=== PATIENT | female | born 1995 | race Caucasian/White ===

== ENCOUNTER 2016-09-19 08:29 | Inpatient (IN) ==
[2016-09-19] MEDS ORDERED: Metoclopramide 10 MG/2 ML VIAL IVP PRN (08:50)
[2016-09-19] MEDS ORDERED: Naloxone 0.4 MG/ML INJ IVP PRN (08:50)
[2016-09-19] MEDS ORDERED: Ondansetron 4 MG/2 ML VIAL IVP PRN (08:50)
[2016-09-19] MEDS ORDERED: Famotidine 20 MG/2 ML VIAL IVP PRN (08:50)
[2016-09-19] MEDS ORDERED: Ringers Solution, Lactated 1,000 ML IVC SCH (09:00)
[2016-09-19] MEDS ORDERED: Oxytocin 20 units/ LR 1000 mL 20 UNIT/1,000 ML BAG IVC SCH ×2 (09:00→22:15)
[2016-09-19 09:26] LABS: Basophils % 0.2 %; Eosinophils # 0.1 K/mcL (0.0-0.6); Eosinophils % 0.7 %; Hematocrit 37.4 % (35.3-44.9); Hemoglobin 12.4 g/dL (11.5-15.4); Immature Granulocytes % 0.5 % (0-4); Lymphocytes # 1.7 K/mcL (0.6-4.6); Lymphocytes % 17.7 %; Mean Corpuscular HGB Conc 33.2 g/dL (31.6-35.5); Mean Corpuscular Hemoglobin 28.4 pg (28.0-33.3); Mean Corpuscular Volume 85.6 fL (83.0-100.0); Mean Platelet Volume 10.7 fL (9.4-12.4); Monocytes # 0.8 K/mcL (0.0-1.3); Monocytes % 8.2 %; Platelet Count 164 K/mcL (140-400); Red Blood Count 4.37 M/mcL (3.82-4.97); Red Cell Distribution Width 13.6 % (11.5-14.5); Segmented Neutrophils % 72.7 %
[2016-09-19] MEDS ORDERED: *HR* Nalbuphine 20 MG/ML AMPUL IVP PRN (09:39)
--- NOTE | 2016-09-19 09:47 | OB/GYN History & Physical ---
Date of Encounter: 09/19/16 Time of Encounter: 09:42 Assessment and Plan (1) 40 weeks gestation of Current visit: Yes Status: Acute Admit to labor and delivery for labor Routine labor management GBS negative Patient may have epidural and/or IV pain medication upon request Vaginal delivery anticipated POC per consult with Dr Velarde. (2) Uterine contractions Current visit: Yes Status: Acute History of Present Illness Chief complaint: Contractions HPI: Ms. Payan is a 21 year old female at 40 weeks and 4 days gestation that was seen in the office this morning with complaints of contractions every 6 minutes for 3 days. She states positive movement and denies LOF, vaginal bleeding, headache, vision changes, and epigastric pain. She had an insignificant course with adequate care. Her GBS status is negative, her blood type is A positive, she immune to varicella, rubella, and is Hep B negative. She is to be admitted for active labor. Past Med Surg Social Fam HX - Past Medical History Medical history: no medical history Psychiatric history: anxiety, depression, panic disorder, PTSD - Past Surgical History Surgical History: no surgical history - Social History Smoking Status: Former smoker Smokeless Tobacco Status: No Alcohol use: none Drug use: none Obstetrical History - Pregnancies : 3 Para: 0 Term: 0 : 0 Ab's: 2 Livin Medications and Allergies Meloxicam [Mobic] 7.5 mg PO DAILY #14 tablet 12/09/15 [Rx] Allergies acetaminophen [From Tylenol] Allergy (Verified 04/27/16 14:40) Vomiting Review of System OB All systems PM: reviewed and no additional remarkable complaints except as stated Exam - Vital Signs Vital signs: Initial Vital Signs Temp Pulse Resp BP Pulse Ox 97.6 F 72 20 133/87 99 09/19/16 09:31 09/19/16 09:31 09/19/16 09:31 09/19/16 09:31 09/19/16 09:31 - Constitutional Constitutional: well developed, well nourished, no acute distress, average body habitus - HEENT HEENT: Normocephaly, Mucus Membranes Moist - Neck Neck exam: full ROM, normal inspection - Lungs Respiratory exam: CTAB - Cardiovascular Cardiovascular exam: RRR, +S1, +S2 - Abdomen Abdomen: Present: bowel sounds normal, gravid, non tender - Extremities Extremities exam: normal capillary refill, normal inspection, radial pulses palpable and symetrical Deep Tendon Reflex Grade: 1+ Diminished - Cervix Dilation: 3 (per office exam) Effacement: 80 (per office exam) Station: -1 - Uterus Uterus exam: Absent: tender - Comments Comments: FHTs 135 with moderate variability and 15x15 accels Category I tracing TOCO: Contractions every 2-4 minutes 60-90 seconds in length, palpate moderate Results Result Diagrams: 09/19/16 09:10 All other labs normal. - VTE Reasons for not Prescribing Prophylaxis: Treatment not Indicated - Low risk for VTE
[2016-09-19] MEDS ORDERED: Bupivacaine-MPF 0.25% 10 ML VIAL EP ONE (10:27)
[2016-09-19] MEDS ORDERED: *HR* FentaNYL (PF) 100 MCG/2 ML VIAL EP ONE (10:27)
[2016-09-19] MEDS ORDERED: Epidural Premix (fent/bupiv) 110 ML EP SCH (10:30)
[2016-09-19] MEDS ORDERED: *HR* FentaNYL (PF) 100 MCG/2 ML VIAL ONE (10:30)
[2016-09-19] MEDS ORDERED: Bupivacaine-MPF 0.25% 10 ML VIAL ONE ×2 (10:31→19:44)
[2016-09-19] MEDS ORDERED: Epidural Premix (fent/bupiv) 110 ML EP ONE ×2 (10:33→17:40)
--- NOTE | 2016-09-19 11:24 | Anesthesia Evaluation PreOp ---
Date of Encounter: 09/19/16 Time of Encounter: 10:20 - Past History Planned Operation: epidural Cardiac History: Denies any Significant Hx Pulmonary History: Former smoker (quit at start of preg, 6 mos smoking history) PRECISION AGRONOMIST History: Denies Any Significant HX Other Medical History: GERD Anesthesia History: No Prior Anesthetic Complications (had foot surgery as an , no family history of anesthesia problems) : Yes Test: Positive Alcohol Use: none Drug use: none Medications and Allergies Meloxicam [Mobic] 7.5 mg PO DAILY #14 tablet 12/09/15 [Rx] Allergies acetaminophen [From Tylenol] Allergy (Verified 04/27/16 14:40) Vomiting - Meds/Allergy Pre-op Review Medications Reviewed: Yes Allergies Reviewed: Yes Beta Blockers on Current Med List: No Anesthesia Results - Labs 09/19/16 09:10 Anesthesia Exam 3 Vital Signs Time 1020 BP 133/87 Pulse 78 Resp 16 O2 Sat 98 Height: 65 Weight: 107 kg NPO (# of Hours): clears Pain Scale: 9 Pain Scale Used: Numeric (1 - 10) - HEENT Pupil (Motor): Pupils equal Mallampati: II Teeth: Normal Oral Opening: Greater than 3 - PRECISION AGRONOMIST LOC: Oriented PRECISION AGRONOMIST Motor: Normal RUE, Normal LUE, Normal RLE, Normal LLE, Normal Face PRECISION AGRONOMIST Sensory: Normal: RUE, LUE, RLE, LLE, Face - Cardiac Rhythm: Regular Murmur: None JVD: No Carotid Bruit: No - Pulmonary Breath Sounds: bilateral Clear Respiratory Effort: Symmetrical Anesthesia Assess/Plan ASA Score: 2 Modified Corey Scale for Level of Consciousness: Cooperative, oriented, and tranquil Anesthetic Plan: Regional Monitoring Plan: Standard Monitors Recovery Plan: Other
--- NOTE | 2016-09-19 11:30 | Anesthesia Procedures ---
Date of Encounter: 09/19/16 Time of Encounter: 10:40 Procedures: Anesthesia - Epidural/Spinal Patient ID/Chart reviewed: Yes Patient examined: Yes OB Eval: Gestational age: 40 weeks 4 days OB Eval: : 3 OB Eval: Hx Para: 0 OB Eval: Dilated at (cm): 3 OB Eval: Contractions: Non-stressed pattern Consent Obtained: Yes Supplemental Oxygen: None/Room Air Site Prep: Aseptic Technique, Sterile prep and drape, Povidone-Iodine 1% Patient position: upright Local Anesthetic: Lidocaine 1% Amount of Local Anesthetic used: 3 Touhy Needle Gauge: 18 Touhy Needle Depth (cm): 6 Catheter Depth at Skin (cm): 13 Test Dose (1.5% Lido + Epi): Volume given (mls): 3 Test Dose Result: Negative Loading Dose: 0.25% Marcaine (mls): 5 Loading Dose: Fentanyl (mcg): 100 Loading Dose: Other: 3 ml saline Loading Dose Administered: Thru Catheter Infusion Rate (mls/hr): [address]: Tegaderm, Tape Interspace Used: L3-L4 Loss of Resistance (ROSY): Yes (air) Blood: No CSF: No Paresthesia: No Procedure: 3 Vital Signs Time 1040 start 1057 test 1106 bolus finish 1117 BP 137/86 121/63 111/59 98/57 Pulse 78 71 76 77 Resp 16 16 16 16 O2 Sat 98 98 98 98 heart tones 120-130 throughout
--- NOTE | 2016-09-19 13:35 | OB Labor Progress Note ---
Date of Encounter: 09/19/16 Time of Encounter: 13:27 Labor Progress Note - Subjective Subjective: Patient resting comfortably in bed after epidural placement. - Vital Signs Vital Signs: Stable - Cervix Cervix: 3-4/80/0 anterior soft - Heart Tones Heart Tones: FHTs 120's with moderate variability and 15 x 15 accels. No decels noted - [place]: Contractions every 2-4 minutes 60 seconds in length. Palpate moderate. Uterus palpates soft - Interventions Interventions: Patient verbally consents to AROM AROM for clear fluid - Plan Plan: Continue routine management Anticipate vaginal delivery POC per consult with Dr Velarde
--- NOTE | 2016-09-19 16:32 | OB Labor Progress Note ---
Date of Encounter: 09/19/16 Time of Encounter: 16:29 Labor Progress Note - Subjective Subjective: Patient resting comfortably in bed on her right side with the peanut ball between her legs - Vital Signs Vital Signs: Stable - Cervix Cervix: 6/100/+1 - Heart Tones Heart Tones: 115 moderate variability with occasional early decel - [place]: Contractions every 2-3 minutes; palpate firm with contractions, palpate soft between contractions - Interventions Interventions: Cervical exam to place IUPC to adequately adjust pitocin. Patient's cervix dilates from 6 to 9 during exam. IUPC was not placed due to change in cervical exam. - Plan Plan: Continue routine labor management Vaginal delivery anticipated POC discussed with Dr Velarde.
--- NOTE | 2016-09-19 17:42 | OB Labor Progress Note ---
Date of Encounter: 09/19/16 Time of Encounter: 17:40 Labor Progress Note - Subjective Subjective: Patient calls CNM to bedside. States that she is having pain in her abdomen. Denies pain in her bottom, pelvis - Vital Signs Vital Signs: Stable - Cervix Cervix: Anterior Lip/+1 station - Heart Tones Heart Tones: 115 with moderate variability Accels present with scalp stimulation - [place]: Contractions every 2-4 minutes, 60 seconds in length - Interventions Interventions: Reposition - Plan Plan: Patient to labor down Pitocin remains at 4mu/min Pain well controlled with epidural Vaginal delivery anticipated POC per consult with Dr Velarde.
[2016-09-19] MEDS ORDERED: *HR* Ropivacaine/PF 0.2% 10 ML AMPUL ONE (18:51)
--- NOTE | 2016-09-19 20:19 | OB/GYN Procedure Note ---
Delivery - Delivery Date: 09/19/16 Provider: Rosana Booker (Dr Velarde present at bedside for proctoring) Intrapartum events: none Delivery induction: AROM Delivery augmentation: rupture of membranes, pitocin Delivery monitor: external FHT, external uterine Anesthesia: local, epidural Estimated Blood Loss: 300 - (s) Infant A Delivery Date: 09/19/16 Delivery Time: 19:19 Presentation: vertex Position: ELICEO Route of delivery: Gender: Male Viability: Viable Weight Gram: 4.105 kg at 1 minute: 6 at 5 mins: 8 Shoulder Dystocia: not encountered Specimens collected: venous cord gases, arterial cord gases Placenta: spontaneous Cord: nuchal cord (loose nuchal cord), 3 umbilical vessels, delivered through nuchal - Repair Episiotomy: none Laceration Description: Periurethral (Hemostatic), Perineal - 2nd Degree ( Repaired) - Complications Delivery complications: none Delivery comments: Patient progressed to complete on pitocin and labored down. Patient pushed in left lateral position and then transitioned to Lithotomy with stirrups. Patient bears down with coached pushing to of male infant in ELICEO with nuchal x1. Delivered through nuchal. No shoulder dystocia encountered. Cord clamped and cut immediately and infant taken to prewarmed radiant warmer for transition with the special care nursery team. Apgars 6 and 8 at 1 and 5 minutes of age; cord gasses sent. Placenta delivered spontaneously and appears grossly intact with 3 vessel cord. Fundus firm with moderate lochia. Upon inspection after delivery, cervix appears intact, right hemostatic periurethral present (not repaired) and second degree laceration present. Second degree laceration repaired in the ususal fashion with 3-0 vicryl. Hemostasis noted upon completion of repair. EBL 300. Mother stable in recovery. Infant taken to special care nursery for observation. Dr Velarde present at delivery. - Disposition Mom disposition: stable in LDR disposition: stable in LDR
[2016-09-19] MEDS ORDERED: Acetaminophen 325 MG TABLET PO PRN (22:15)
[2016-09-19] MEDS ORDERED: Measles/Mumps/Rubella Vacc 0.5 ML VIAL SQ PRN (22:15)
[2016-09-19] MEDS: Ibuprofen 600 MG TABLET PO PRN (23:13)
--- NOTE | 2016-09-20 08:22 | OB/GYN Progress Note ---
Date of Encounter: 09/20/16 Time of Encounter: 08:20 - Assessment and Plan (1) Vaginal delivery Current Visit: Yes Status: Acute Stable in . Continue care. Anticipate DC tomorrow. Subjective - Subjective Interval history: Pt states feeling well. Pain well managed on po medication. tolerates regular diet. in SCN Patient reports: appetite normal, voiding normally, pain well controlled, ambulating normally : in NICU Objective - Latest Vital Signs Latest vital signs: Vital Signs Temp Pulse Resp BP Pulse Ox 09/20/16 04:25 98.2 F 78 16 121/82 98 09/20/16 00:00 98.6 F 82 14 142/88 97 09/19/16 23:00 98.6 F 87 18 138/86 98 09/19/16 22:00 98.4 F 75 20 127/82 98 09/19/16 09:31 97.6 F 72 20 133/87 99 Intake and Output 09/19/16 09/20/16 09/20/16 23:59 07:59 15:59 Output Total 1000 / 1000 Balance -1000 / -1000 Output: Urine 1000 / 1000 Other: Weight 107.365 kg - Exam Lungs: bilateral: normal Chest: Normal S1, Normal S2 Extremities: Present: normal Abdomen: Present: normal appearance, soft Uterus: Present: normal Uterus Position: Midline - Labs Labs: Laboratory Results - last 24 hr 09/19/16 09:10 WBC 9.6 RBC 4.37 Hgb 12.4 Hct 37.4 MCV 85.6 MCH 28.4 MCHC 33.2 RDW 13.6 Plt Count 164 MPV 10.7 Immature Gran % 0.5 Seg Neutrophils % 72.7 Lymphocytes % 17.7 Monocytes % 8.2 Eosinophils % 0.7 Basophils % 0.2 Neutrophils # 7.0 Lymphocytes # 1.7 Monocytes # 0.8 Eosinophils # 0.1 Basophils # 0.0
[2016-09-20] MEDS: Ibuprofen 600 MG TABLET PO PRN ×2 (09:07→18:43)
[2016-09-20] MEDS: Prenatal Vit/FA 1 EACH TABLET PO SCH (09:07)
[2016-09-21 08:57] VITALS: BP 114/78
[2016-09-21] MEDS: Ibuprofen 600 MG TABLET PO PRN (09:03)
[2016-09-21] MEDS: Prenatal Vit/FA 1 EACH TABLET PO SCH (09:04)
--- NOTE | 2016-09-21 09:36 | Discharge Summary ---
Date of Encounter: 09/21/16 Time of Encounter: 09:34 - Discharge Diagnosis (1) Vaginal delivery Priority: Primary Status: Acute Comments: Pt meeting milestones. - Discharge Medications Prescriptions: Ibuprofen [Motrin] 600 mg PO Q6HR PRN #60 tablet PRN Reason: Cramping Docusate [Colace] 100 mg PO BID #60 capsule Home Medications: Docusate [Colace] 100 mg PO BID #60 capsule 09/21/16 [Rx] Ibuprofen [Motrin] 600 mg PO Q6HR PRN #60 tablet 09/21/16 [Rx] Vit/FA 1 each PO DAILY tablet 09/21/16 [Rx] Allergies/Adverse Reactions: Allergies acetaminophen [From Tylenol] Allergy (Verified 04/27/16 14:40) Vomiting Data Procedures and tests throughout hospitalization: Laboratory Tests 09/19/16 09:10 WBC 9.6 RBC 4.37 Hgb 12.4 Hct 37.4 MCV 85.6 MCH 28.4 MCHC 33.2 RDW 13.6 Plt Count 164 MPV 10.7 Immature Gran % 0.5 Seg Neutrophils % 72.7 Lymphocytes % 17.7 Monocytes % 8.2 Eosinophils % 0.7 Basophils % 0.2 Neutrophils # 7.0 Lymphocytes # 1.7 Monocytes # 0.8 Eosinophils # 0.1 Basophils # 0.0 Date of admission: 09/19/16 08:29 Primary care physician: Ceasar Forman DO Discharging clinician: Melisa Grimaldo Anticipated date of discharge: 09/21/16 - Patient Status Disposition: Home, Self-Care Condition: Good Functional capacity at discharge: independent ambulation Overall status at discharge: patient is progressing back to baseline - Discharge Instructions Follow Up With: Ceasar Forman DO [Primary Care Provider] - nAgela Rich CNM [Non-Partnered Physician] - - Diet and Activity Activity: increase activity as tolerated Diet: regular diet Hospital Course Reason for admission: active labor Delivery: Episiotomy: none Laceration: 2nd degree Other procedures: none complications: none Discharge diagnosis: IUP at term delivered [place] baby: male Hospital course: - Delivery Date: 09/19/16 Provider: Rosana Booker (Dr Velarde present at bedside for proctoring) Intrapartum events: none Delivery induction: AROM Delivery augmentation: rupture of membranes, pitocin Delivery monitor: external FHT, external uterine Anesthesia: local, epidural Estimated Blood Loss: 300 - (s) A Infant Delivery Date: 09/19/16 Delivery Time: 19:19 Presentation: vertex Position: ELICEO Route of delivery: Gender: Male Viability: Viable Weight Gram: 4.105 kg at 1 minute: 6 at 5 mins: 8 Shoulder Dystocia: not encountered Specimens collected: venous cord gases, arterial cord gases Placenta: spontaneous Cord: nuchal cord (loose nuchal cord), 3 umbilical vessels, delivered through nuchal - Repair Episiotomy: none Laceration Description: Periurethral (Hemostatic), Perineal - 2nd Degree ( Repaired) - Complications Delivery complications: none - Disposition Mom disposition: discharge home PPD#2 disposition: home with mother, bottle feeding Time Attestation: Total time spent providing and/or coordinating discharge services: Time Spent: Less than 30 minutes Exam - Constitutional Vitals: Temp Pulse Resp BP Pulse Ox 97.8 F 82 16 114/78 98 09/21/16 07:40 09/21/16 07:40 09/21/16 07:40 09/21/16 07:40 09/21/16 07:40 General appearance IM: A&O X 3, pleasant, no acute distress - Respiratory Respiratory exam: Present: CTAB - Cardiovascular Cardiovascular exam IM: Present: RRR, +S1, +S2 - GI/Abdominal GI/Abdominal exam IM: soft - Rectal Rectal exam: deferred - Uterine Tone: Firm Uterus Position: 2 Fingers Below Umbilicus - Extremities Exam Extremities exam IM: Present: pedal edema (2+ edema bilaterally, no erythema or warmth) - Neurological Exam Neurological exam: normal gait, oriented X3 - Psychiatric Additional comments: Pt reports good mood.
== END 2016-09-21 11:30 | disposition home or self-care (01) | DRG 560 ==
LOC: 1NENULAB → OBSVTOIN 08:29 → 1NENUOBS 23:04
PROVIDERS: ADMIT Obstetrics & Gynecology; ATTEND Obstetrics & Gynecology